=== PATIENT | female | born 1955 | race African-American/Black ===

== ENCOUNTER 2021-09-13 05:25 | Inpatient (IN) | payer OTHER ==
[~2021-09-13] VITALS: Ht 160 cm; Wt 63.5 kg
[2021-09-13] MEDS ORDERED: CYAN50009 PO (06:54)
[2021-09-13] MEDS ORDERED: FOLI0.8T41 PO (06:54)
[2021-09-13] MEDS ORDERED: CALC1CAP34 PO (06:54)
[2021-09-13] MEDS ORDERED: BRI.2% EACH EYE (06:54)
[2021-09-13] MEDS ORDERED: ASCO500C18 PO (06:54)
[2021-09-13] MEDS ORDERED: POLY30DR OP (06:54)
[2021-09-13] MEDS ORDERED: NETA2.5D3 (06:54)
[2021-09-13] MEDS ORDERED: TIMO5DRO15 EACH EYE (06:54)
[2021-09-13] MEDS ORDERED: CEFAZOLIN SOD 1 GM in D5W 50 ML IV ONE (07:00)
[2021-09-13] MEDS ORDERED: cefOXitin SODIUM 2 GM in D5W 100 ML IV ONE (07:15)
[2021-09-13] MEDS ORDERED: MEPERIDINE HCL/PF 25 MG/ML DISP.SYRIN IVP PRN (09:45)
[2021-09-13] MEDS ORDERED: HYDROmorphone 1 MG/ML INJ. CARTRIDGE IVP PRN ×3 (09:45→13:00)
[2021-09-13] MEDS ORDERED: METOCLOPRAMIDE HCL 10 MG/2 ML VIAL IVP PRN (09:45)
[2021-09-13] MEDS ORDERED: LR 1,000 ML IV SCH (09:45)
[2021-09-13] MEDS ORDERED: hydrALAZINE HCL 20 MG/ML VIAL IVP PRN (09:45)
[2021-09-13] MEDS ORDERED: LABETALOL 100 MG/ 20ML VIAL IVP PRN (09:45)
[2021-09-13] MEDS ORDERED: BUPIVACAINE LIPOSOME/PF 266 MG/20 ML VIAL INFIL ONE (09:53)
[2021-09-13] MEDS ORDERED: ACETAMINOPHEN I.V. 1000 MG 100 ML IV ONE (09:56)
[2021-09-13] MEDS ORDERED: ACETAMINOPHEN 325 MG TABLET PO PRN ×2 (12:45→13:00)
[2021-09-13] MEDS ORDERED: HYDROcodone/ACETAMIN 5-325 MG TAB (NORCO/ VICODIN) PO PRN ×4 (12:45→13:00)
[2021-09-13] MEDS ORDERED: ONDANSETRON HCL 4 MG/2 ML VIAL IVP PRN (13:00)
[2021-09-13] MEDS ORDERED: D5/0.45 NS 1,000 ML IV SCH (13:00)
[2021-09-13] MEDS ORDERED: ONDANSETRON HCL 4 MG/2 ML VIAL ONE (13:20)
[2021-09-13] MEDS ORDERED: MIDAZOLAM HCL 5 MG/ML VIAL (VERSED) IV ONE (13:20)
[2021-09-13] MEDS ORDERED: NS 1000 ML IV.SOLN IV ONE (13:20)
[2021-09-13] MEDS ORDERED: PROPOFOL 200MG/ 20ML VIAL (DIPRIVAN) IV ONE (13:20)
[2021-09-13] MEDS ORDERED: LR 1,000 ML IV.SOLN IV ONE (13:20)
[2021-09-13] MEDS ORDERED: NS 100 ML BAG ONE (13:20)
[2021-09-13] MEDS ORDERED: LIDOCAINE 2%, 20 ML MDV ONE (13:20)
[2021-09-13] MEDS ORDERED: WATER FOR IRRIGATION,STERILE 1,000 ML IRRIG.SOLN IR ONE (13:20)
[2021-09-13] MEDS ORDERED: BUPIVACAINE /PF 0.25% 30 ML VIAL INJ ONE (13:20)
[2021-09-13] MEDS ORDERED: DESFLURANE 15 MIN GAS INH ONE (13:20)
[2021-09-13] MEDS ORDERED: fentaNYL CITRATE 250 MCG/5 ML AMP ONE (13:20)
[2021-09-13] MEDS ORDERED: ROCURONIUM BROMIDE 10 MG/ML (ZEMURON) ONE (13:20)
[2021-09-13] MEDS ORDERED: DEXAMETHASONE SOD PHOSPHATE 4 MG/ML VIAL ONE (13:20)
[2021-09-13] MEDS ORDERED: SUGAMMADEX SODIUM 200 MG/2 ML VIAL IV ONE (13:20)
[2021-09-13 13:36] LABS: HEMATOCRIT 31.5 % (36-48); HEMOGLOBIN 10.9 g/dL (12.0-16.0)
[2021-09-13 13:44] LABS: CALCIUM 7.6 mg/dL (8.4-11.0); CREATININE 2.69 mg/dL (0.55-1.30); POTASSIUM 4.8 mmol/L (3.5-5.1)
[2021-09-13] MEDS: HYDROmorphone 1 MG/ML INJ. CARTRIDGE ONE ×3 (14:05→14:20)
[2021-09-13] MEDS ORDERED: HYDROmorphone 1 MG/ML INJ. CARTRIDGE ONE (14:48)
[2021-09-13 16:13] VITALS: BP_SYST 166
[2021-09-13] MEDS: D5/0.45 NS 1,000 ML IV SCH ×2 (16:22→22:45)
[2021-09-13] MEDS ORDERED: cefOXitin SODIUM 2 GM in D5W 100 ML IV SCH (21:00)
[2021-09-13] MEDS ORDERED: FAMOTIDINE PF 20 MG/2 ML VIAL IVP SCH (21:00)
[2021-09-13] MEDS: ALVIMOPAN 12 MG CAPSULE PO SCH (21:00)
[2021-09-13] MEDS: HYDROmorphone 1 MG/ML INJ. CARTRIDGE IVP PRN (22:00)
[2021-09-13] MEDS: FAMOTIDINE PF 20 MG/2 ML VIAL IVP SCH (22:01)
[2021-09-13] MEDS: cefOXitin SODIUM 2 GM in D5W 100 ML IV SCH (22:02)
[2021-09-13] MEDS: ONDANSETRON HCL 4 MG/2 ML VIAL IVP PRN (23:51)
[2021-09-14 00:27] VITALS: BP_SYST 111
[2021-09-14 00:32] VITALS: BP_SYST 161
[2021-09-14] MEDS: HYDROmorphone 1 MG/ML INJ. CARTRIDGE IVP PRN ×3 (05:38→22:11)
[2021-09-14] MEDS: ONDANSETRON HCL 4 MG/2 ML VIAL IVP PRN ×3 (05:38→15:30)
[2021-09-14 06:11] VITALS: BP_SYST 149
[2021-09-14 07:29] LABS: BASOPHILS % (AUTO) 0.2 % (0.0-2.0); HEMATOCRIT 35.9 % (36-48); HEMOGLOBIN 12.3 g/dL (12.0-16.0); LYMPHOCYTES # (AUTO) 0.5 K/uL (1.0-5.5); LYMPHOCYTES % (AUTO) 4.6 % (20.5-51.5); MEAN CORPUSCULAR HEMOGLOBIN 31 pg (27-31); MEAN CORPUSCULAR HGB CONC 34 % (32-36); MEAN CORPUSCULAR VOLUME 90 fL (79.0-98.0); MONOCYTES # (AUTO) 0.9 K/uL (0.0-1.0); MONOCYTES % (AUTO) 8.7 % (1.7-9.3); NEUTROPHILS # (AUTO) 8.5 K/uL (1.8-7.7); NEUTROPHILS % (AUTO) 86.5 % (40.0-70.0); PLATELET COUNT (AUTO) 137 K/uL (130-430); WHITE BLOOD COUNT (AUTO) 9.8 K/uL (4.8-10.8)
[2021-09-14 08:00] VITALS: BP_SYST 132
[2021-09-14 08:13] LABS: ALBUMIN 3.5 g/dL (3.4-4.8); CALCIUM 8.8 mg/dL (8.4-11.0); CREATININE 2.27 mg/dL (0.55-1.30); POTASSIUM 4.8 mmol/L (3.5-5.1); TOTAL BILIRUBIN 0.5 mg/dL (0.0-1.0)
[2021-09-14] MEDS: cefOXitin SODIUM 2 GM in D5W 100 ML IV SCH (08:58)
[2021-09-14] MEDS: FAMOTIDINE PF 20 MG/2 ML VIAL IVP SCH ×2 (08:58→22:04)
[2021-09-14] MEDS ORDERED: ENOXAPARIN SODIUM 30 MG/0.3 ML SYRINGE SUBCUT SCH (09:00)
[2021-09-14] MEDS: ALVIMOPAN 12 MG CAPSULE PO SCH ×2 (09:09→22:04)
[2021-09-14] MEDS: ENOXAPARIN SODIUM 30 MG/0.3 ML SYRINGE SUBCUT SCH (09:13)
[2021-09-14] MEDS: TIMOLOL MALEATE 0.5% OPHTHALMIC DROPS 5 ML OP SCH (16:46)
[2021-09-14] MEDS: BRIMONIDINE TARTRATE 0.2% 5 mL EYE DROPS OP SCH ×2 (16:46→22:05)
[2021-09-14] MEDS: PEG 400/HYPROMELLOSE/GLYCERIN 15 ML DROPS OP SCH ×2 (16:46→22:04)
[2021-09-14] MEDS: METOCLOPRAMIDE HCL 10 MG/2 ML VIAL IVP SCH (18:36)
[2021-09-14] MEDS: D5/0.45 NS 1,000 ML IV SCH (18:45)
[2021-09-14 20:10] VITALS: BP_SYST 137
[2021-09-14] MEDS ORDERED: NON-FORMULARY MEDICATION OP SCH (21:00)
[2021-09-15 00:11] VITALS: BP_SYST 123
[2021-09-15] MEDS: METOCLOPRAMIDE HCL 10 MG/2 ML VIAL IVP SCH ×3 (01:05→12:58)
[2021-09-15] MEDS: D5/0.45 NS 1,000 ML IV SCH ×2 (01:22→04:45)
[2021-09-15 08:00] VITALS: BP_SYST 133
[2021-09-15] MEDS: ALVIMOPAN 12 MG CAPSULE PO SCH (09:12)
[2021-09-15] MEDS: FAMOTIDINE PF 20 MG/2 ML VIAL IVP SCH (09:12)
[2021-09-15] MEDS: BRIMONIDINE TARTRATE 0.2% 5 mL EYE DROPS OP SCH (09:13)
[2021-09-15] MEDS: TIMOLOL MALEATE 0.5% OPHTHALMIC DROPS 5 ML OP SCH (09:13)
[2021-09-15] MEDS: PEG 400/HYPROMELLOSE/GLYCERIN 15 ML DROPS OP SCH ×2 (09:13→12:58)
[2021-09-15] MEDS: ENOXAPARIN SODIUM 30 MG/0.3 ML SYRINGE SUBCUT SCH (09:14)
[2021-09-15 12:00] VITALS: BP_SYST 144
[2021-09-15 16:00] VITALS: BP_SYST 152
[2021-09-15 17:01] VITALS: BP_SYST 152
[2021-09-15 17:10] VITALS: BP_SYST 162
== END 2021-09-15 18:00 | disposition home or self-care (01) | DRG 331 ==
LOC: SDS 05:25 → SMU 05:25 → SDS 09-14 15:06
PROVIDERS: ADMIT Colon & Rectal Surgery; ATTEND Colon & Rectal Surgery
PROC: 0DJD8ZZ Inspection of Lower Intestinal Tract, Via Natural or Artificial Opening Endoscopic (ICD-10-PCS; 2021-09-13)
PROC: 0DTJ4ZZ Resection of Appendix, Percutaneous Endoscopic Approach (ICD-10-PCS; 2021-09-13)
PROC: 0DBE4ZZ Excision of Large Intestine, Percutaneous Endoscopic Approach (ICD-10-PCS; 2021-09-13)
PROC: 0D1B0Z4 Bypass Ileum to Cutaneous, Open Approach (ICD-10-PCS; principal; 2021-09-13 08:41)
DX: Z43.3 Encounter for attention to colostomy (principal); Z85.42 Personal history of malignant neoplasm of other parts of uterus; K66.0 Peritoneal adhesions (postprocedural) (postinfection); Z20.822 Contact with and (suspected) exposure to COVID-19; Z92.3 Personal history of irradiation
CPT/HCPCS: 36415; 71045; 80048; 80053; 85018; 85025; 86886; 86900; 86901; 87081; 88307; C1727; C1751; C9290; J0131; J0690; J0694; J1100; J1170; J1650; J2001; J2250; J2405; J2704; J2765; J3010; J3490; J7030; J7060; J7120; U0003